=== PATIENT | female | born 1990 | race Caucasian/White ===

== ENCOUNTER 2023-02-15 02:15 | Inpatient (IN) ==
[2023-02-15] MEDS ORDERED: SODIUM CHLORIDE 0.9% 1000ML 2,000 ML IV ONE (02:23)
--- NOTE | 2023-02-15 02:47 | Emergency Department Note ---
History of Present Illness General Chief complaint: Fever Stated complaint: FEVER,CHILLS,LOWER BACK PAIN,ABD PAIN Time Seen by Provider: 02/15/23 02:22 History of Present Illness Maximum Pain Intensity: 3 This 32-year-old female presents to the ER complaining of right flank pain and urinary symptoms with fever and chills. She states she had kidney stones before and can urine infections. Patient denies chest pain, dyspnea, cough, congestion. She states she is worried she might have a stone or urine infection. Home Medications Medication Instructions Recorded Confirmed Type clonazepam 1 mg tablet 2.5 mg PO DAILY 02/15/23 02/15/23 History multivitamin 1 tab PO DAILY 02/15/23 02/15/23 History trimethoprim 100 mg tablet 100 mg PO HS 02/15/23 02/15/23 History Allergies Allergy/AdvReac Type Severity Reaction Status Date / Time No Known Allergies Allergy Verified 06/05/22 01:13 Past Med/Surg History Medical History No pertinent family history No pertinent past medical history Surgical History No pertinent past surgical history S/P T&A (status post tonsillectomy and adenoidectomy) Family History Grandfather (Paternal) Prostate cancer Mother Stomach cancer Father FH: throat cancer Uncle Prostate cancer Rectal cancer Social History Smoking Status: Former smoker Tobacco Type: Cigarettes Second Hand Exposure: No; Do You Dip or Chew Tobacco: No; Tobacco Cessation Education Requested by Patient: No Hx Alcohol Use: No Hx Substance Use: No Preferred Language: Guinean Communication Ability: Effective Repairer [employer] Equipment Required: No Beliefs That Will Affect Care: None Current Living Situation: Parent current occupational status: employed 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 Other Information That Helps Us Care for You: No Feels Safe at Home: Yes Safety Concerns: Feels Safe At This Time Assistive Devices: Glasses Review of Systems A total of 10 systems reviewed and were otherwise negative Physical Exam Vital Signs Vital Signs - 24 hr 02/15/23 02:17 02/15/23 02:44 02/15/23 04:16 Temperature 36.6 C Temperature Source Temporal Artery Scan Pulse Rate 125 H 98 H Pulse Rate [Finger] 76 Pulse Rhythm Regular Pulse Rhythm [Finger] Regular Pulse Strength [Finger] Normal Respiratory Rate 20 17 17 Respiratory Effort / Characteristics Non-Labored Non-Labored Respiratory Depth Normal Normal Respiratory Pattern Regular Blood Pressure 109/78 Blood Pressure [Right Arm] 122/85 Blood Pressure Mean 88 Blood Pressure Mean [Right Arm] 97 Blood Pressure Position [Right Arm] Lying Pulse Oximetry 100 98 97 Oxygen Delivery Method Room Air Room Air Room Air Sepsis Recent Fever Within 48 Hours No Sepsis New/Unexplained Change in Mental Status N/A Sepsis Action Taken by Nursing No Action Required 02/15/23 06:15 Temperature Temperature Source Pulse Rate Pulse Rate [Finger] 78 Pulse Rhythm Pulse Rhythm [Finger] Regular Pulse Strength [Finger] Normal Respiratory Rate 16 Respiratory Effort / Characteristics Non-Labored Respiratory Depth Normal Respiratory Pattern Regular Blood Pressure Blood Pressure [Right Arm] 122/67 Blood Pressure Mean Blood Pressure Mean [Right Arm] 85 Blood Pressure Position [Right Arm] Lying Pulse Oximetry 97 Oxygen Delivery Method Room Air Sepsis Recent Fever Within 48 Hours Sepsis New/Unexplained Change in Mental Status Sepsis Action Taken by Nursing VITALS: Vitals are noted on the nurse's note and reviewed by myself. Vital signs mildly tachycardic. GENERAL: White female, in no acute distress, nondiaphoretic, well-developed well-nourished. SKIN: The skin was without rashes, erythema, edema, or bruising. There is no tenting of the skin. Capillary reflex less than 2 seconds. HEAD: Normocephalic atraumatic. EARS: External auditory canals clear, EYES: Pupils equal round and reactive to light and accommodation. Conjunctivae without injection, sclerae without icterus. Extraocular movements intact. NOSE: Patent, turbinates without inflammation or discharge. MOUTH: Mucous membranes moist. Pharynx without erythema or exudate. Uvula midline. Airway patent. Tongue does not deviate. NECK: Supple without nuchal rigidity. No lymphadenopathy. No thyromegaly. Cervical spine is nontender. No JVD. HEART: Mildly tachycardic rate and rhythm LUNGS: Clear to auscultation bilaterally without wheezes, rales or rhonchi. No retractions or accessory muscle use. ABDOMEN: Positive bowel sounds x 4. Normal tympanic percussion. Soft, tender right lower quadrant, right CVA tenderness, without masses or organomegaly. Wilhelm sign negative. No guarding or rebound tenderness. MUSCULOSKELETAL: No muscle atrophy, erythema, or edema noted. NEURO: Patient was alert and oriented to person place and time. Normal sensation to light and sharp touch. No focal neurological deficits. Course Administered Medications Clonazepam (Clonazepam 1 Mg Tab) 1 mg PO BID@09,17 SELIN Stop: 03/17/23 12:29 Last Admin: 02/15/23 13:22 Dose: 1 mg Documented By: HALEY Doxycycline Hyclate (Doxycycline Hyclate 100 Mg Cap) 100 mg PO BID SELIN Stop: 02/25/23 14:59 Last Admin: 02/15/23 15:31 Dose: 100 mg Documented By: HALEY Ketorolac Tromethamine (Ketorolac Tromethamine 15 Mg/Ml Vial) 15 mg IV Q6H PRN PRN Reason: severe pain (7-10) Stop: 02/20/23 12:29 Last Admin: 02/15/23 13:44 Dose: 15 mg Documented By: HALEY Lactobacillus Acidophilus (Advanced Probiotic 1250 Mg Capsule) 2 cap PO DAILY SELIN Stop: 03/17/23 12:29 Last Admin: 02/15/23 13:20 Dose: 2 cap Documented By: HALEY Metronidazole (Metronidazole 500 Mg Tab) 500 mg PO BID SELIN Stop: 02/25/23 14:49 Last Admin: 02/15/23 15:31 Dose: 500 mg Documented By: HALEY Multivitamins (Multivitamin Tab) 1 tab PO DAILY SELIN Stop: 03/17/23 12:59 Last Admin: 02/15/23 13:20 Dose: 1 tab Documented By: HALEY Discontinued Medications Sodium Chloride (Nss 1000ml) 2,000 mls @ 999 mls/hr IV .Q2H1M ONE Stop: 02/15/23 04:23 Last Infusion: 02/15/23 05:04 Dose: 0 mls/hr Documented By: Admin: 02/15/23 03:24 Dose: 999 mls/hr Documented By: NIMA Ceftriaxone Sodium 1,000 mg/ (Dextrose) 50 mls @ 100 mls/hr IV NOW STA Stop: 02/15/23 03:51 Last Infusion: 02/15/23 04:24 Dose: 0 mls/hr Documented By: Admin: 02/15/23 03:53 Dose: 100 mls/hr Documented By: NIMA Acetaminophen (Ofirmev) 1,000 mg in 100 mls @ 400 mls/hr IV NOW STA Stop: 02/15/23 04:59 Last Infusion: 02/15/23 05:20 Dose: 0 mls/hr Documented By: Admin: 02/15/23 05:05 Dose: 400 mls/hr Documented By: NIMA Ioversol (Optiray 350 100ml) 88 ml IV ONCE ONE Stop: 02/15/23 03:16 Last Admin: 02/15/23 03:12 Dose: 88 ml Documented By: FRANCISCO Ketorolac Tromethamine (Ketorolac Tromethamine 15 Mg/Ml Vial) 10 mg IV NOW STA Stop: 02/15/23 06:47 Last Admin: 02/15/23 06:58 Dose: 10 mg Documented By: GRIFFIN Morphine Sulfate (Morphine Sulfate 2 Mg/Ml Carp) 2 mg IV NOW STA Stop: 02/15/23 07:26 Last Admin: 02/15/23 07:39 Dose: 2 mg Documented By: GRIFFIN Ondansetron HCl (Ondansetron Home Pack 4mg Od Tab) 1 each PO NOW ONE Stop: 02/15/23 06:12 Last Admin: 02/15/23 06:58 Dose: 1 each Documented By: GRIFFIN Medical Decision Making Medical Records Attestation: I reviewed the patient's medical records. Home Medications Current Medication List: was personally reviewed by me Laboratory Data Attestation: I reviewed the patient's lab results. 02/15/23 02:28 02/15/23 02:28 Lab Results 02/15/23 02/15/23 02/15/23 Range/Units 02:28 02:28 02:28 WBC 14.30 H (4.8-10.8) K/ul RBC 4.80 (4.20-5.40) M/uL Hgb 15.1 (12.0-16.0) g/dl POC Hgb (12.0-16.0) g/dl Hct 43.4 (37.0-47.0) % POC Hct (37-47) % MCV 90.4 (80.0-100.0) fL MCH 31.5 (25.0-34.0) pg MCHC 34.8 (32.0-36.0) g/dL RDW Std Deviation 45.2 (36.4-46.3) fL RDW Coeff of Dotty 13.6 (11.5-14.5) % Plt Count 198 (130-400) K/uL MPV 10.9 (9.4-12.4) fL Immature Gran % (Auto) 0.3 % Neut % (Auto) 85.1 % Lymph % (Auto) 4.8 % [place] % (Auto) 9.6 % Eos % (Auto) 0.1 % Baso % (Auto) 0.1 % Neut # (Auto) 12.17 H (1.40-6.50) K/uL Lymph # (Auto) 0.68 L (1.2-3.4) K/uL [place] # (Auto) 1.37 H (0.11-0.59) K/uL Eos # (Auto) 0.02 (0-0.50) K/uL Baso # (Auto) 0.02 (0-0.2) K/uL Immature Gran # (Auto) 0.04 (0.01-0.20) K/uL POC Sodium (135-144) mmol/L Sodium 136 (136-145) mmol/L POC Potassium (3.3-5.0) mmol/L Potassium 4.0 (3.5-5.1) mmol/L POC Chloride (101-112) mmol/L Chloride 101 (98-107) mmol/L Carbon Dioxide 28 (21-32) mmol/L POC Total CO2 (24-31) mmol/L Anion Gap 7 (3-11) POC Anion Gap (16-25) mmol/L POC BUN (7-18) mg/dl BUN 13 (6-23) mg/dl Creatinine 0.88 (0.6-1.2) mg/dl POC Creatinine (0.6-1.3) mg/dl Est Cr Clr Drug Dosing 79.7 ml/min Est GFR ( Amer) 100.1 ml/min Est GFR (Non-Af Amer) 86.3 ml/min BUN/Creatinine Ratio 14.8 (10-20) Glucose 109 H (70-99(Fasting)) mg/dl POC Glucose (other) (70-99) mg/dl Lactate 1.2 (0.4-2.0) mmol/L Calcium 9.3 (8.6-10.3) mg/dl POC Ioniz Calcium Sandee (1.12-1.32) mmol/l Magnesium 2.0 (1.7-2.4) mg/dl Total Bilirubin 1.7 H (0.2-1.0) mg/dl Direct Bilirubin 0.3 H (0-0.2) mg/dl AST 17 (13-39) U/L ALT 11 (7-52) U/L Alkaline Phosphatase 41 (34-104) U/L Troponin I High Sens 4.3 (0-14) pg/ml Total Protein 7.4 (6.0-8.3) gm/dl Albumin 4.6 (3.4-5.0) gm/dl Procalcitonin (0-0.5) ng/ml Urine Color Urine Appearance (Clear) Urine pH (4.5-7.5) Ur Specific [place] (1.000-1.030) Urine Protein (Negative) Urine Glucose (UA) (Negative) Urine Ketones (Negative) Urine Blood (Negative) Urine Nitrite (Negative) Urine Bilirubin (Negative) Urine Urobilinogen (Negative) Ur Leukocyte Esterase (Negative) Urine WBC (Auto) (0-5) /hpf Urine RBC (Auto) (0-4) /hpf U Hyaline Cast (Auto) (0-5) /lpf U Epithel Cells (Auto) (0-5) /lpf Urine Bacteria (Auto) (Negative) Urine Test (Negative) SARS-CoV-2 (PCR) (Negative) 02/15/23 02/15/23 02/15/23 Range/Units 02:28 02:28 02:28 WBC (4.8-10.8) K/ul RBC (4.20-5.40) M/uL Hgb (12.0-16.0) g/dl POC Hgb (12.0-16.0) g/dl Hct (37.0-47.0) % POC Hct (37-47) % MCV (80.0-100.0) fL MCH (25.0-34.0) pg MCHC (32.0-36.0) g/dL RDW Std Deviation (36.4-46.3) fL RDW Coeff of Dotty (11.5-14.5) % Plt Count (130-400) K/uL MPV (9.4-12.4) fL Immature Gran % (Auto) % Neut % (Auto) % Lymph % (Auto) % [place] % (Auto) % Eos % (Auto) % Baso % (Auto) % Neut # (Auto) (1.40-6.50) K/uL Lymph # (Auto) (1.2-3.4) K/uL [place] # (Auto) (0.11-0.59) K/uL Eos # (Auto) (0-0.50) K/uL Baso # (Auto) (0-0.2) K/uL Immature Gran # (Auto) (0.01-0.20) K/uL POC Sodium (135-144) mmol/L Sodium (136-145) mmol/L POC Potassium (3.3-5.0) mmol/L Potassium (3.5-5.1) mmol/L POC Chloride (101-112) mmol/L Chloride (98-107) mmol/L Carbon Dioxide (21-32) mmol/L POC Total CO2 (24-31) mmol/L Anion Gap (3-11) POC Anion Gap (16-25) mmol/L POC BUN (7-18) mg/dl BUN (6-23) mg/dl Creatinine (0.6-1.2) mg/dl POC Creatinine (0.6-1.3) mg/dl Est Cr Clr Drug Dosing ml/min Est GFR ( Amer) ml/min Est GFR (Non-Af Amer) ml/min BUN/Creatinine Ratio (10-20) Glucose (70-99(Fasting)) mg/dl POC Glucose (other) (70-99) mg/dl Lactate (0.4-2.0) mmol/L Calcium (8.6-10.3) mg/dl POC Ioniz Calcium Sandee (1.12-1.32) mmol/l Magnesium (1.7-2.4) mg/dl Total Bilirubin (0.2-1.0) mg/dl Direct Bilirubin (0-0.2) mg/dl AST (13-39) U/L ALT (7-52) U/L Alkaline Phosphatase (34-104) U/L Troponin I High Sens (0-14) pg/ml Total Protein (6.0-8.3) gm/dl Albumin (3.4-5.0) gm/dl Procalcitonin 1.47 H (0-0.5) ng/ml Urine Color Yellow Urine Appearance Clear (Clear) Urine pH 6.5 (4.5-7.5) Ur Specific [place] 1.006 (1.000-1.030) Urine Protein Negative (Negative) Urine Glucose (UA) Negative (Negative) Urine Ketones Negative (Negative) Urine Blood Negative (Negative) Urine Nitrite Negative (Negative) Urine Bilirubin Negative (Negative) Urine Urobilinogen Negative (Negative) Ur Leukocyte Esterase 1+ H (Negative) Urine WBC (Auto) 10-30 H (0-5) /hpf Urine RBC (Auto) 0-4 (0-4) /hpf U Hyaline Cast (Auto) 1-5 (0-5) /lpf U Epithel Cells (Auto) >30 H (0-5) /lpf Urine Bacteria (Auto) 2+ H (Negative) Urine Test Negative (Negative) SARS-CoV-2 (PCR) (Negative) 02/15/23 02/15/23 Range/Units 02:56 02:57 WBC (4.8-10.8) K/ul RBC (4.20-5.40) M/uL Hgb (12.0-16.0) g/dl POC Hgb 13.9 (12.0-16.0) g/dl Hct (37.0-47.0) % POC Hct 41 (37-47) % MCV (80.0-100.0) fL MCH (25.0-34.0) pg MCHC (32.0-36.0) g/dL RDW Std Deviation (36.4-46.3) fL RDW Coeff of Dotty (11.5-14.5) % Plt Count (130-400) K/uL MPV (9.4-12.4) fL Immature Gran % (Auto) % Neut % (Auto) % Lymph % (Auto) % [place] % (Auto) % Eos % (Auto) % Baso % (Auto) % Neut # (Auto) (1.40-6.50) K/uL Lymph # (Auto) (1.2-3.4) K/uL [place] # (Auto) (0.11-0.59) K/uL Eos # (Auto) (0-0.50) K/uL Baso # (Auto) (0-0.2) K/uL Immature Gran # (Auto) (0.01-0.20) K/uL POC Sodium 138 (135-144) mmol/L Sodium (136-145) mmol/L POC Potassium 3.7 (3.3-5.0) mmol/L Potassium (3.5-5.1) mmol/L POC Chloride 100 L (101-112) mmol/L Chloride (98-107) mmol/L Carbon Dioxide (21-32) mmol/L POC Total CO2 26 (24-31) mmol/L Anion Gap (3-11) POC Anion Gap 17.0 (16-25) mmol/L POC BUN 13 (7-18) mg/dl BUN (6-23) mg/dl Creatinine (0.6-1.2) mg/dl POC Creatinine 0.8 (0.6-1.3) mg/dl Est Cr Clr Drug Dosing ml/min Est GFR ( Amer) ml/min Est GFR (Non-Af Amer) ml/min BUN/Creatinine Ratio (10-20) Glucose (70-99(Fasting)) mg/dl POC Glucose (other) 109 H (70-99) mg/dl Lactate (0.4-2.0) mmol/L Calcium (8.6-10.3) mg/dl POC Ioniz Calcium [place] 1.20 (1.12-1.32) mmol/l Magnesium (1.7-2.4) mg/dl Total Bilirubin (0.2-1.0) mg/dl Direct Bilirubin (0-0.2) mg/dl AST (13-39) U/L ALT (7-52) U/L Alkaline Phosphatase (34-104) U/L Troponin I High Sens (0-14) pg/ml Total Protein (6.0-8.3) gm/dl Albumin (3.4-5.0) gm/dl Procalcitonin (0-0.5) ng/ml Urine Color Urine Appearance (Clear) Urine pH (4.5-7.5) Ur Specific [place] (1.000-1.030) Urine Protein (Negative) Urine Glucose (UA) (Negative) Urine Ketones (Negative) Urine Blood (Negative) Urine Nitrite (Negative) Urine Bilirubin (Negative) Urine Urobilinogen (Negative) Ur Leukocyte Esterase (Negative) Urine WBC (Auto) (0-5) /hpf Urine RBC (Auto) (0-4) /hpf U Hyaline Cast (Auto) (0-5) /lpf U Epithel Cells (Auto) (0-5) /lpf Urine Bacteria (Auto) (Negative) Urine Test (Negative) SARS-CoV-2 (PCR) NEGATIVE (Negative) Imaging Data Attestation: I personally reviewed and interpreted this imaging study as follows: Radiologist's Impression: Abdomen/Pelvis CT 02/15/23 02:23 Exam(s): CT ABDOMEN + PELVIS With Contrast IV Amt: 88 ML EXAM: CT Abdomen and Pelvis With Intravenous Contrast CLINICAL HISTORY: Reason for exam: flank pain, fever, ua sx. TECHNIQUE: Axial computed tomography images of the abdomen and pelvis with intravenous contrast. CTDI is 5.52 mGy and DLP is 251.95 mGy-cm. Automated exposure control was utilized for the study. A dose lowering technique was utilized adhering to the principles of ALARA. CONTRAST: Patient received 88 ML of IV contrast COMPARISON: No relevant prior studies available. FINDINGS: Limitations: Poorly diagnostic coronal reformatted images. Lung bases: Unremarkable. No mass. No consolidation. ABDOMEN: Liver: Unremarkable. No mass. Gallbladder and bile ducts: Cholelithiasis. No gross findings to suggest cholecystitis. No ductal dilation. Pancreas: Unremarkable. No mass. No ductal dilation. Spleen: Unremarkable. No splenomegaly. Adrenals: Unremarkable. No mass. Kidneys and ureters: Unremarkable. No solid mass. No hydronephrosis. Stomach and bowel: Unremarkable. No mucosal thickening. No evidence of bowel obstruction. PELVIS: Appendix: Normal appendix. Bladder: Unremarkable. No mass. Reproductive: Unremarkable as visualized. ABDOMEN and PELVIS: Intraperitoneal space: Unremarkable. No free air. No significant fluid collection. Bones/joints: No acute fracture. No dislocation. Soft tissues: Umbilical hernia containing fat. Vasculature: Unremarkable. No abdominal aortic aneurysm. Lymph nodes: Unremarkable. No enlarged lymph nodes. IMPRESSION: No acute findings on CT abdomen/pelvis with incidental findings as described. Electronically signed by: Bobby Quiroga MD 02/15/23 07:25 AM Chest X-Ray 02/15/23 02:23 XR chest 1V portable CLINICAL HISTORY: Sepsis TECHNIQUE: Single frontal radiograph of the chest was obtained. Comparison: Comparison is made to chest radiograph 06/05/2022 FINDINGS: No lines and tubes are seen. The cardiomediastinal silhouette is normal. Reticular interstitial opacities are seen. No evidence of pleural effusion or pneumothorax. IMPRESSION: No acute abnormalities and in particular no radiographic evidence of pneumonia. Chronic interstitial changes are seen. ACT 112: Negative or not required by law. Electronically signed by: Pramod Greer M.D. 02/15/2023 8:47 AM [facility] Narrative Prior records/ancillary studies reviewed. Triage Nursing notes reviewed. Additional history obtained from family. The patient's history was concerning for flank pain urinary symptoms and fever. Differential diagnosis: Etiologies such as pyelonephritis, infected stone, viral syndrome, otitis, pharyngitis, pneumonia, influenza, meningitis, urinary tract infection, sepsis, bacteremia, as well as others were entertained. Physical examination: As above ER treatment provided: An order was placed for continuous cardiac monitoring. The monitor shows a rate of 60-1 50 with a sinus rhythm per my interpretation. IV fluids were ordered On reassessment the patient felt better. Diagnostics interpreted by me: ECG: Ordered for tachycardia EKG: Normal sinus, normal intervals, no acute ST-T wave changes. Impression normal sinus rhythm, septal infarct, rate of 90 intermittent interpreted by myself I think arrhythmia is unlikely. EKG shows normal sinus rhythm with no interval abnormalities such as QT prolongation or WPW. There are no findings to suggest Brugada syndrome. Cardiac monitoring in the emergency department reveals no tachycardic or bradycardic dysrhythmia. Hypertrophic cardiomyopathy was considered but there are no clear historical elements pointing toward this. EKG is not suggestive. The QRS voltage is not extremely large The labs Independently Interpreted by myself revealed leukocytosis Urine concerning for infection sent for culture Blood cultures pending [address] [place] [address] / Director: Armand Dey M.D. Clinical Laboratory Report Name: LESLIE GARCIA Acct: [id number] Status: [facility] [place] 1990 [facility] [place]: [place]06[place] Age: 32 Sex: F Dis Date: Loc: Emergency Department Spec: [id number] Collected: 10/06/21 Received: 10/06/[address]: Cynthia Roberts D.O. Source: Urine,Clean Catch OV Order: Ordered: Urine Culture Procedure Result Verified Site Urine Culture Final 10/08/21 Organism 1 Klebsiella pneumoniae [place] Count >100,000 CFU/ml Sens Sensitivities to Follow Kleb pneum RX M.I.C. --- --------- Amox/Clav S <=8/4 Amp/Sul S <=8/4 Cefazolin S <=2 Cefepime S <=2 Ceftriaxone S <=1 Ciprofloxacin S <=0.25 Ertapenem S <=0.5 Gentamicin S <=4 Levofloxacin S <=0.5 Meropenem S <=1 Nitrofurantoin S <=32 Tobramycin S <=4 Trimeth/Sulfa S <=2/38 Pip/Tazo S <=16 S = SENSITIVE I = INTERMEDIATE R = RESISTANT Imaging studies: pending at time of signout CXR with no acute consolidation, free air or pns per my interpretation This appears to be consistent with possibe pyelonephritis. Patient was started on antibiotics. Labs and diagnostics were independent interpreted by myself. Prior urine culture was reviewed. CT pending at time of signout. Pt has hx recurrent UTIs on daily Bactrim for prevention. Pt was medicated as above and is improving. Case signed out to oncoming provider pending CT and re-eval in stable condition. The chart was completed utilizing [employer] voice recognition software. Grammatical errors, random word insertions, pronoun errors, and incomplete sentences are an occassional consequence of this system due to software limitations, ambient noise, and hardware issues. Any formal questions or concerns about the content, text, or information contained within the body of this dictation should be directly addressed to the physician drug safety assistant for clarification. Impression & Plan Pyelonephritis Discharge Plan Visit Data Chief Complaint: Fever Stated Complaint: FEVER,CHILLS,LOWER BACK PAIN,ABD PAIN ED Provider: [facility] ED Midlevel Provider: Lopez Lazaro Discharge Problem: Pyelonephritis Patient Disposition: Admitted As Inpatient Condition: Good Discharge Instructions Interventions: ED Discharge Assessment Last Done: 02/15/23 12:20
[2023-02-15 03:00] LABS: Appearance Urine Clear (Clear); Bacteria Urine Automated 2+ (Negative); Bilirubin Urine Negative (Negative); Blood Urine Negative (Negative); Color Urine Yellow; Epithelial Cell Urine Auto >30 /lpf (0-5); Glucose Urine UA Negative (Negative); Ketones Urine Negative (Negative); Leukocyte Esterase Urine 1+ (Negative); Nitrite Urine Negative (Negative); Protein Urine Negative (Negative); RBC Urine Automated 0-4 /hpf (0-4); Specific Gravity Urine 1.006 (1.000-1.030); Urobilinogen Urine Negative (Negative); pH Urine 6.5 (4.5-7.5)
[2023-02-15 03:02] LABS: Basophils # (auto) 0.02 K/uL (0-0.2); Basophils % (auto) 0.1 %; Eosinophils # (auto) 0.02 K/uL (0-0.50); Eosinophils % (auto) 0.1 %; Hematocrit (blood only) 43.4 % (37.0-47.0); Hemoglobin 15.1 g/dl (12.0-16.0); Immature Granulocytes # (auto) 0.04 K/uL (0.01-0.20); Immature Granulocytes % (auto) 0.3 %; Lymphocytes # (auto) 0.68 K/uL (1.2-3.4); Lymphocytes % (auto) 4.8 %; Mean Corpuscular Hemoglobin 31.5 pg (25.0-34.0); Mean Corpuscular Hgb Conc 34.8 g/dL (32.0-36.0); Mean Corpuscular Volume 90.4 fL (80.0-100.0); Mean Platelet Volume 10.9 fL (9.4-12.4); Monocytes # (auto) 1.37 K/uL (0.11-0.59); Monocytes % (auto) 9.6 %; Neutrophils # (auto) 12.17 K/uL (1.40-6.50); Neutrophils % (auto) 85.1 %; Platelet Count 198 K/uL (130-400); RDW Coefficient of Variation 13.6 % (11.5-14.5); RDW Standard Deviation 45.2 fL (36.4-46.3)
[2023-02-15 03:08] LABS: iSTAT Creatinine 0.8 mg/dl (0.6-1.3); iSTAT Hemoglobin 13.9 g/dl (12.0-16.0); iSTAT Ionized Calcium 1.2 mmol/l (1.12-1.32); iSTAT Potassium 3.7 mmol/L (3.3-5.0)
[2023-02-15] MEDS ORDERED: OPTIRAY 350 100ml IV ONE (03:15)
[2023-02-15 03:18] LABS: Albumin Level 4.6 gm/dl (3.4-5.0); BUN Creatinine Ratio 14.8 (10-20); Bilirubin Direct 0.3 mg/dl (0-0.2); Bilirubin,Total 1.7 mg/dl (0.2-1.0); Calcium 9.3 mg/dl (8.6-10.3); Creatinine Clr Calc Pharmacy 79.7 ml/min; Est GFR (African American) 100.1 ml/min; Est GFR (Non-African American) 86.3 ml/min; Total Protein 7.4 gm/dl (6.0-8.3)
[2023-02-15] MEDS ORDERED: cefTRIAXone SODIUM 1,000 MG in DEXTROSE 5% AD-VAN 50 ML IV STA (03:22)
[2023-02-15 03:25] LABS: Troponin I High Sensitivity 4.3 pg/ml (0-14)
[2023-02-15] MEDS ORDERED: ACETAMINOPHEN 1,000 MG/100 ML VIAL IV STA (04:45)
[2023-02-15] MEDS ORDERED: ONDANSETRON HOME PACK 4MG OD TAB PO ONE (06:11)
[2023-02-15 06:26] LABS: Pregnancy Test, Urine Negative (Negative)
[2023-02-15] MEDS ORDERED: KETOROLAC TROMETHAMINE 15 MG/ML VIAL IV STA (06:46)
[2023-02-15] MEDS ORDERED: MoRPHine SULFATE 2 MG/ML CARP IV STA (07:25)
--- NOTE | 2023-02-15 07:26 | CT Scan Report ---
Exam(s): CT ABDOMEN + PELVIS With Contrast IV Amt: 88 ML EXAM: CT Abdomen and Pelvis With Intravenous Contrast CLINICAL HISTORY: Reason for exam: flank pain, fever, ua sx. TECHNIQUE: Axial computed tomography images of the abdomen and pelvis with intravenous contrast. CTDI is 5.52 mGy and DLP is 251.95 mGy-cm. Automated exposure control was utilized for the study. A dose lowering technique was utilized adhering to the principles of ALARA. CONTRAST: Patient received 88 ML of IV contrast COMPARISON: No relevant prior studies available. FINDINGS: Limitations: Poorly diagnostic coronal reformatted images. Lung bases: Unremarkable. No mass. No consolidation. ABDOMEN: Liver: Unremarkable. No mass. Gallbladder and bile ducts: Cholelithiasis. No gross findings to suggest cholecystitis. No ductal dilation. Pancreas: Unremarkable. No mass. No ductal dilation. Spleen: Unremarkable. No splenomegaly. Adrenals: Unremarkable. No mass. Kidneys and ureters: Unremarkable. No solid mass. No hydronephrosis. Stomach and bowel: Unremarkable. No mucosal thickening. No evidence of bowel obstruction. PELVIS: Appendix: Normal appendix. Bladder: Unremarkable. No mass. Reproductive: Unremarkable as visualized. ABDOMEN and PELVIS: Intraperitoneal space: Unremarkable. No free air. No significant fluid collection. Bones/joints: No acute fracture. No dislocation. Soft tissues: Umbilical hernia containing fat. Vasculature: Unremarkable. No abdominal aortic aneurysm. Lymph nodes: Unremarkable. No enlarged lymph nodes. IMPRESSION: No acute findings on CT abdomen/pelvis with incidental findings as described. Electronically signed by: Bobby Quiroga MD 02/15/23 07:25 AM
--- NOTE | 2023-02-15 08:03 | History & Physical Report ---
Date of Service February 15, 2023 Assessment & Plan (1) Sepsis: Plan: 2/2 acute pyelonephritis. Resuscitated in the ER, normal lactate. Elevated procalcitonin. She reports frequent UTIs on the order of once monthly and was recently placed on trimethoprim 100mg daily for chronic prevention UTIs. She reports prior to this taking "leftover" abx which would not be complete courses to treat recurrent symptoms. This all may be contributing. Cont ceftriaxone pending urine culture results and clinical improvement. CT shows no evidence of obstructing stone. She has a history of yeast infections with abx use so will give her diflucan at the first sign of vaginal yeast infection. Will also add probiotics. (2) Pyelonephritis: Plan: acute, plan as above. (3) Vaginal bleeding: Plan: Intermittent vaginal bleeding in the last two weeks, alternating menorrhagia and trace bleeding, reported to be associated with pelvic discomfort that is sometimes severe enough to keep her in bed for several hours. Negative urine preg test. h/o taking OCPs, stopped one year ago, not currently on contraception. Appreciate PHOTOGRAMMETRIC COMPILATION SPECIALIST recommendations. (4) Anxiety: Plan: chronic, controlled with clonazepam per home. (5) Recurrent UTI: Plan: As above started trimethoprim low dose daily for chronic suppression UTIs. Lovenox Full Code Dispo- to home in next 1-2 days. Chasity Morillo DO [facility] Hospitalist History of Present Illness Chief Complaint: fever Primary Care Provider: Ryder Garcia 32 yo F presents with vomiting and fever overnight along with right flank pain. She ate dinner around 5pm but nothing since. No active nausea and pain has been controlled with pain meds given in the ER today. For the last couple of weeks, she reports intermittent vaginal bleeding intermittently x 2-3 weeks ago. She has pelvic pain, dull to severe-some days cant get out of bed. Pelvic pain typically resolves spontaneously, but can last for a couple of hours before it resolves. Denies diarrhea or constipation. Normal eating/drinking well up un til last night. Urine has a strong smell which is new. Reports +fever/chills last night (99.4). Reports slight dysuria, no other UTI symptoms of urinary urgency or increased frequency. Has a h/o recurrent UTIs, reporting one per month. States she will take frequent antibiotics but sometimes will just take leftover antibiotic pills that she has on hand. She recently started trimethoprim 100mg qHS approximately 1-2 months ago for chronic prevention of recurrent UTIs. [id number] is 4 yo. H/o elective with initial D&C complicated by post operative infection requiring a repeat D&C and additional infection after that. Not currently on OCPs, used to use the pill. Stopped over 1 yr. Currently reports she is not trying to conceive. Used to have abnormal periods prior to starting on OCPs in her teens. Menses typically lasts 7 days, heavy first 2-3 days, and comes every 4 weeks up until the last 2 weeks when she noted the intermittent spotting. Allergies Allergy/AdvReac Type Severity Reaction Status Date / Time No Known Allergies Allergy Verified 06/05/22 01:13 Home Medications Medication Instructions Recorded Confirmed Type cefdinir 300 mg capsule 300 mg PO BID 10 days #20 caps 02/15/23 02/15/23 Rx clonazepam 1 mg tablet 2.5 mg PO DAILY 02/15/23 02/15/23 History multivitamin 1 tab PO DAILY 02/15/23 02/15/23 History trimethoprim 100 mg tablet 100 mg PO HS 02/15/23 02/15/23 History Past Med/Surg History Medical History (Updated 02/15/23 @ 09:26 by Chasity Morillo DO) No pertinent family history No pertinent past medical history Surgical History (Updated 02/15/23 @ 08:45 by Chasity Morillo DO) No pertinent past surgical history S/P T&A (status post tonsillectomy and adenoidectomy) Family History (Updated 02/15/23 @ 08:47 by Chasity Morillo DO) Grandfather (Paternal) Prostate cancer Mother Stomach cancer Father FH: throat cancer Uncle Prostate cancer Rectal cancer Social History (Updated 02/15/23 @ 08:48 by Chasity Morillo DO) Smoking Status: Light tobacco smoker Tobacco Type: Cigarettes Hx Alcohol Use: No Hx Substance Use: No Preferred Language: Greenlandic Current Living Situation: Parent current occupational status: employed 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 Physical Exam Physical Exam: CONSTITUTIONAL: WNWD, vitals as above, generally well-appearing, NAD EYES: normal conjunctivae, no scleral icterus ENT: external ear and nose normal, MMM NECK: trachea midline RESPIRATORY: clear to auscultation bilaterally, no crackles, rales or wheezes, normal respiratory effort CARDIOVASCULAR: regular rate and rhythm, S1 and 2 heard without murmurs, gallops or rubs, no JVD, no peripheral edema CHEST: inspection of chest was normal GASTROINTESTINAL: normal bowel sounds, soft, nontender, ND, no guarding, +R CVA tenderness MUSCULOSKELETAL: strength 5/5 throughout, head is normocephalic and atraumatic, SKIN: warm and dry, tattoos on upper back NEUROLOGIC: CN 2-12 grossly intact, no sensory deficit, normal cognition, normal speech, no tremor PSYCHIATRIC: alert cooperative and oriented to person, place and time. Euthymic mood, makes good eye contact, language grossly intact, recent and remote memory grossly intact. Results & Data Results & Data Vital Signs (Past 12 Hours) Vital Signs Temp Pulse Pulse Resp BP BP Pulse Ox 02/15/23 06:15 78 16 122/67 97 02/15/23 04:16 76 17 122/85 97 02/15/23 02:44 98 H 17 98 02/15/23 02:17 36.6 C 125 H 20 109/78 100 O2 Del Method 02/15/23 06:15 Room Air 02/15/23 04:16 Room Air 02/15/23 02:44 Room Air 02/15/23 02:17 Room Air Laboratory Results Short CBC 02/15/23 Range/Units 02:28 WBC 14.30 H (4.8-10.8) K/ul Hgb 15.1 (12.0-16.0) g/dl Hct 43.4 (37.0-47.0) % Plt Count 198 (130-400) K/uL BMP 02/15/23 02:28 Sodium 136 Potassium 4.0 Chloride 101 Carbon Dioxide 28 BUN 13 Creatinine 0.88 Glucose 109 H Calcium 9.3 Liver Function 02/15/23 Range/Units 02:28 Total Bilirubin 1.7 H (0.2-1.0) mg/dl Direct Bilirubin 0.3 H (0-0.2) mg/dl AST 17 (13-39) U/L ALT 11 (7-52) U/L Alkaline Phosphatase 41 (34-104) U/L Albumin 4.6 (3.4-5.0) gm/dl Urine 02/15/23 Range/Units 02:28 Urine Color Yellow Urine Appearance Clear (Clear) Urine pH 6.5 (4.5-7.5) Ur Specific [place] 1.006 (1.000-1.030) Urine Protein Negative (Negative) Urine Glucose (UA) Negative (Negative) Diagnostic Findings Abdomen/Pelvis CT 02/15/23 02:23 Exam(s): CT ABDOMEN + PELVIS With Contrast IV Amt: 88 ML EXAM: CT Abdomen and Pelvis With Intravenous Contrast CLINICAL HISTORY: Reason for exam: flank pain, fever, ua sx. TECHNIQUE: Axial computed tomography images of the abdomen and pelvis with intravenous contrast. CTDI is 5.52 mGy and DLP is 251.95 mGy-cm. Automated exposure control was utilized for the study. A dose lowering technique was utilized adhering to the principles of ALARA. CONTRAST: Patient received 88 ML of IV contrast COMPARISON: No relevant prior studies available. FINDINGS: Limitations: Poorly diagnostic coronal reformatted images. Lung bases: Unremarkable. No mass. No consolidation. ABDOMEN: Liver: Unremarkable. No mass. Gallbladder and bile ducts: Cholelithiasis. No gross findings to suggest cholecystitis. No ductal dilation. Pancreas: Unremarkable. No mass. No ductal dilation. Spleen: Unremarkable. No splenomegaly. Adrenals: Unremarkable. No mass. Kidneys and ureters: Unremarkable. No solid mass. No hydronephrosis. Stomach and bowel: Unremarkable. No mucosal thickening. No evidence of bowel obstruction. PELVIS: Appendix: Normal appendix. Bladder: Unremarkable. No mass. Reproductive: Unremarkable as visualized. ABDOMEN and PELVIS: Intraperitoneal space: Unremarkable. No free air. No significant fluid collection. Bones/joints: No acute fracture. No dislocation. Soft tissues: Umbilical hernia containing fat. Vasculature: Unremarkable. No abdominal aortic aneurysm. Lymph nodes: Unremarkable. No enlarged lymph nodes. IMPRESSION: No acute findings on CT abdomen/pelvis with incidental findings as described. Electronically signed by: Bobby Quiroga MD 02/15/23 07:25 AM Code Status & VTE Plan VTE Prophylaxis Plan VTE Prophylaxis will be ordered: Yes
--- NOTE | 2023-02-15 08:43 | Electrocardiogram Report ---
Test Reason : Blood Pressure : / mmHG Vent. Rate : 090 BPM Atrial Rate : 090 BPM P-R Int : 136 ms QRS Dur : 080 ms QT Int : 356 ms P-R-T Axes : 046 037 049 degrees QTc Int : 435 ms Normal sinus rhythm with sinus arrhythmia Normal ECG No previous ECGs available Confirmed by Tommy Billy ([id number]) on 02/15/2023 8:43:47 AM Referred By: REFERRED SELF Confirmed By:Tommy Billy
--- NOTE | 2023-02-15 08:49 | XRay Report ---
XR chest 1V portable CLINICAL HISTORY: Sepsis TECHNIQUE: Single frontal radiograph of the chest was obtained. Comparison: Comparison is made to chest radiograph 06/05/2022 FINDINGS: No lines and tubes are seen. The cardiomediastinal silhouette is normal. Reticular interstitial opaci ties are seen. No evidence of pleural effusion or pneumothorax. IMPRESSION: No acute abnormalities and in particular no radiographic evidence of pneumonia. Chronic interstitial changes are seen. ACT 112: Negative or not required by law. Electronically signed by: Pramod Greer M.D. 02/15/2023 8:47 AM
--- NOTE | 2023-02-15 08:54 | Emergency Department Note ---
ED Visit Note Patient case was signed out to me pending CT scan of the abdomen/pelvis. Patient case signed out to me at 0700 hrs. on 02/15/2023 from Amie Fong PA-C. Please refer to her note regarding chief complaint, HPI, ROS, PE, MDM/decision making/plan until point of signout. I did assess the patient at time of signout. She was resting comfortably. I will note that on arrival she did appear to be tachycardic. Her symptoms are some left-sided flank/low back pain in the setting of urinary symptoms. Preceding that she did have some vaginal bleeding which has resolved and is no longer present. She denies any vaginal discharge. Her labs reveal leukocytosis 14.30. No anemia. No emergent metabolic disturbance. Mild T. bili elevation at 1.7. Procalcitonin 1.47. Urinalysis reveals concern for infection. CT scan as below. COVID testing negative. Urine test negative. At this time in the setting of urinary symptoms with associated tachycardia, leukocytosis, elevated procalcitonin with nausea/vomiting it is felt that further evaluation and management in the inpatient setting is warranted for continued IV antibiotics. Blood cultures and urine cultures are ordered and pending at this time. Case discussed with the hospitalist service. Please refer to further documentation regarding her stay. Patient amenable to plan of care. Exam(s): CT ABDOMEN + PELVIS With Contrast IV Amt: 88 ML EXAM: CT Abdomen and Pelvis With Intravenous Contrast CLINICAL HISTORY: Reason for exam: flank pain, fever, ua sx. TECHNIQUE: Axial computed tomography images of the abdomen and pelvis with intravenous contrast. CTDI is 5.52 mGy and DLP is 251.95 mGy-cm. Automated exposure control was utilized for the study. A dose lowering technique was utilized adhering to the principles of ALARA. CONTRAST: Patient received 88 ML of IV contrast COMPARISON: No relevant prior studies available. FINDINGS: Limitations: Poorly diagnostic coronal reformatted images. Lung bases: Unremarkable. No mass. No consolidation. ABDOMEN: Liver: Unremarkable. No mass. Gallbladder and bile ducts: Cholelithiasis. No gross findings to suggest cholecystitis. No ductal dilation. Pancreas: Unremarkable. No mass. No ductal dilation. Spleen: Unremarkable. No splenomegaly. Adrenals: Unremarkable. No mass. Kidneys and ureters: Unremarkable. No solid mass. No hydronephrosis. Stomach and bowel: Unremarkable. No mucosal thickening. No evidence of bowel obstruction. PELVIS: Appendix: Normal appendix. Bladder: Unremarkable. No mass. Reproductive: Unremarkable as visualized. ABDOMEN and PELVIS: Intraperitoneal space: Unremarkable. No free air. No significant fluid collection. Bones/joints: No acute fracture. No dislocation. Soft tissues: Umbilical hernia containing fat. Vasculature: Unremarkable. No abdominal aortic aneurysm. Lymph nodes: Unremarkable. No enlarged lymph nodes. IMPRESSION: No acute findings on CT abdomen/pelvis with incidental findings as described. Electronically signed by: Bobby Quiroga MD 02/15/23 07:25 AM .
[2023-02-15] MEDS ORDERED: ONDANSETRON INJ 2 MG/ML 2 ML VIAL IV PRN (12:30)
[2023-02-15] MEDS ORDERED: ACETAMINOPHEN 325 MG TAB PO PRN (12:30)
[2023-02-15] MEDS ORDERED: POLYETHYLENE (MIRALAX) 17 GM PACK PO PRN (12:30)
[2023-02-15] MEDS: ADVANCED PROBIOTIC 1250 MG CAPSULE PO SCH (13:20)
[2023-02-15] MEDS: MULTIVITAMIN TAB PO SCH (13:20)
[2023-02-15] MEDS: clonazePAM 1 MG TAB PO SCH ×2 (13:22→17:03)
[2023-02-15] MEDS: KETOROLAC TROMETHAMINE 15 MG/ML VIAL IV PRN ×2 (13:44→22:20)
--- NOTE | 2023-02-15 14:29 | OB/GYN Consultation ---
Date of Consultation February 15, 2023 Assessment & Plan (1) Pelvic pain: 32-year-old female admitted for flank pain, UTI/pyelonephritis and history of chronic UTIs, on IV ceftriaxone, reporting pelvic pain/abnormal vaginal bleeding for the last 3 weeks, Vital signs stable afebrile, Pelvic exam normal, pap smear and cultures collected Recommend pelvic US ( ordered) Given pelvic pain, AUB, elevated WBCC, recommend empiric therapy for PID Recommend to add Doxycycline and Metronidazole for total of 2 weeks ( I added them to her orders) F/u in recruitment and outreach assistant clinic in 3 weeks All questions were answered. (2) Abnormal uterine bleeding: History of Present Illness Reason for Consultation: Pelvic pain, abnormal uterine bleeding Attending Physician: Chasity Morillo, History of Present Illness Patient is a 32-year-old female who was admitted this morning for flank pain, UTI/pyelonephritis and history of recurrent UTI and was started on IV Rocephin pending urine and blood cultures. She reported its pelvic pain and abnormal uterine bleeding and I was called for consultation. Patient reports regular periods every 4 weeks lasting for 7 days with moderate flow. Patient denies pain or cramping with them. Her last period was about a month ago, not sure exactly and it was normal. But she has been having abnormal intermittent vaginal bleeding episodes since then, some episodes are very light spotting and some are with a gush of blood for 1 time and will stop after. She also reports pelvic pain for about 3 weeks. She has been sexually active with her partner for 2 years and denies pain with sexual intercourse. She has not had SI for the last month. They do not use condoms. She denies history of STDs including chlamydia, gonorrhea, herpes. She does not use any contraception methods. She had a termination of in 2020, had to have D&C x2 due to retained products and infections. She recovered well and was on control pill for a year and stop about a year ago. She is not trying to get neither preventing. Now she denies vaginal discharge or itching nor bleeding. Allergies Allergy/AdvReac Type Severity Reaction Status Date / Time No Known Allergies Allergy Verified 06/05/22 01:13 Home Medications Medication Instructions Recorded Confirmed Type clonazepam 1 mg tablet 2.5 mg PO DAILY 02/15/23 02/15/23 History multivitamin 1 tab PO DAILY 02/15/23 02/15/23 History trimethoprim 100 mg tablet 100 mg PO HS 02/15/23 02/15/23 History Patient History Medical History No pertinent family history No pertinent past medical history Surgical History No pertinent past surgical history S/P T&A (status post tonsillectomy and adenoidectomy) Family History Grandfather (Paternal) Prostate cancer Mother Stomach cancer Father FH: throat cancer Uncle Prostate cancer Rectal cancer Social History Smoking Status: Former smoker Tobacco Type: Cigarettes Second Hand Exposure: No; Do You Dip or Chew Tobacco: No; Tobacco Cessation Education Requested by Patient: No Hx Alcohol Use: No Hx Substance Use: No Preferred Language: [place] Communication Ability: Effective General Inspector Required: No Beliefs That Will Affect Care: None Current Living Situation: Parent current occupational status: employed 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 Other Information That Helps Us Care for You: No Feels Safe at Home: Yes Safety Concerns: Feels Safe At This Time Assistive Devices: Glasses Review of Systems Constitutional: as per Subjective / HPI Physical Exam Constitutional: WD/WN, vitals as above well developed, + thin and comfortable (She is comfortably eating her lunch with her male partner in the room) Genitourinary: normal external appearance Speculum/Bimanual Exam: normal appearance of the vagina, normal appearance of the cervix (no bleeding), bladder normal to palpation, + uterus boggy and + uterus enlarged No CMT, no adnexal nor uterine tenderness 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 Results & Data Vital Signs (Past 12 Hours) Vital Signs Temp Pulse Pulse Resp BP BP Pulse Ox 02/15/23 12:32 36.7 C 73 16 121/68 99 02/15/23 12:20 37.1 C 77 18 105/56 L 96 02/15/23 06:15 78 16 122/67 97 02/15/23 04:16 76 17 122/85 97 02/15/23 02:44 98 H 17 98 O2 Del Method 02/15/23 12:32 Room Air 02/15/23 12:20 Room Air 02/15/23 06:15 Room Air 02/15/23 04:16 Room Air 02/15/23 02:44 Room Air Laboratory Results Lab Results 02/15/23 02/15/23 02/15/23 Range/Units 02:28 02:28 02:28 WBC 14.30 H (4.8-10.8) K/ul RBC 4.80 (4.20-5.40) M/uL Hgb 15.1 (12.0-16.0) g/dl POC Hgb (12.0-16.0) g/dl Hct 43.4 (37.0-47.0) % POC Hct (37-47) % MCV 90.4 (80.0-100.0) fL MCH 31.5 (25.0-34.0) pg MCHC 34.8 (32.0-36.0) g/dL RDW Std Deviation 45.2 (36.4-46.3) fL RDW Coeff of Dotty 13.6 (11.5-14.5) % Plt Count 198 (130-400) K/uL MPV 10.9 (9.4-12.4) fL Immature Gran % (Auto) 0.3 % Neut % (Auto) 85.1 % Lymph % (Auto) 4.8 % [place] % (Auto) 9.6 % Eos % (Auto) 0.1 % Baso % (Auto) 0.1 % Neut # (Auto) 12.17 H (1.40-6.50) K/uL Lymph # (Auto) 0.68 L (1.2-3.4) K/uL [place] # (Auto) 1.37 H (0.11-0.59) K/uL Eos # (Auto) 0.02 (0-0.50) K/uL Baso # (Auto) 0.02 (0-0.2) K/uL Immature Gran # (Auto) 0.04 (0.01-0.20) K/uL POC Sodium (135-144) mmol/L Sodium 136 (136-145) mmol/L POC Potassium (3.3-5.0) mmol/L Potassium 4.0 (3.5-5.1) mmol/L POC Chloride (101-112) mmol/L Chloride 101 (98-107) mmol/L Carbon Dioxide 28 (21-32) mmol/L POC Total CO2 (24-31) mmol/L Anion Gap 7 (3-11) POC Anion Gap (16-25) mmol/L POC BUN (7-18) mg/dl BUN 13 (6-23) mg/dl Creatinine 0.88 (0.6-1.2) mg/dl POC Creatinine (0.6-1.3) mg/dl Est Cr Clr Drug Dosing 79.7 ml/min Est GFR ( Amer) 100.1 ml/min Est GFR (Non-Af Amer) 86.3 ml/min BUN/Creatinine Ratio 14.8 (10-20) Glucose 109 H (70-99(Fasting)) mg/dl POC Glucose (other) (70-99) mg/dl Lactate 1.2 (0.4-2.0) mmol/L Calcium 9.3 (8.6-10.3) mg/dl POC Ioniz Calcium Sandee (1.12-1.32) mmol/l Magnesium 2.0 (1.7-2.4) mg/dl Total Bilirubin 1.7 H (0.2-1.0) mg/dl Direct Bilirubin 0.3 H (0-0.2) mg/dl AST 17 (13-39) U/L ALT 11 (7-52) U/L Alkaline Phosphatase 41 (34-104) U/L Troponin I High Sens 4.3 (0-14) pg/ml Total Protein 7.4 (6.0-8.3) gm/dl Albumin 4.6 (3.4-5.0) gm/dl Procalcitonin (0-0.5) ng/ml Urine Color Urine Appearance (Clear) Urine pH (4.5-7.5) Ur Specific [place] (1.000-1.030) Urine Protein (Negative) Urine Glucose (UA) (Negative) Urine Ketones (Negative) Urine Blood (Negative) Urine Nitrite (Negative) Urine Bilirubin (Negative) Urine Urobilinogen (Negative) Ur Leukocyte Esterase (Negative) Urine WBC (Auto) (0-5) /hpf Urine RBC (Auto) (0-4) /hpf U Hyaline Cast (Auto) (0-5) /lpf U Epithel Cells (Auto) (0-5) /lpf Urine Bacteria (Auto) (Negative) Urine Test (Negative) SARS-CoV-2 (PCR) (Negative) 02/15/23 02/15/23 02/15/23 Range/Units 02:28 02:28 02:28 WBC (4.8-10.8) K/ul RBC (4.20-5.40) M/uL Hgb (12.0-16.0) g/dl POC Hgb (12.0-16.0) g/dl Hct (37.0-47.0) % POC Hct (37-47) % MCV (80.0-100.0) fL MCH (25.0-34.0) pg MCHC (32.0-36.0) g/dL RDW Std Deviation (36.4-46.3) fL RDW Coeff of Dotty (11.5-14.5) % Plt Count (130-400) K/uL MPV (9.4-12.4) fL Immature Gran % (Auto) % Neut % (Auto) % Lymph % (Auto) % [place] % (Auto) % Eos % (Auto) % Baso % (Auto) % Neut # (Auto) (1.40-6.50) K/uL Lymph # (Auto) (1.2-3.4) K/uL [place] # (Auto) (0.11-0.59) K/uL Eos # (Auto) (0-0.50) K/uL Baso # (Auto) (0-0.2) K/uL Immature Gran # (Auto) (0.01-0.20) K/uL POC Sodium (135-144) mmol/L Sodium (136-145) mmol/L POC Potassium (3.3-5.0) mmol/L Potassium (3.5-5.1) mmol/L POC Chloride (101-112) mmol/L Chloride (98-107) mmol/L Carbon Dioxide (21-32) mmol/L POC Total CO2 (24-31) mmol/L Anion Gap (3-11) POC Anion Gap (16-25) mmol/L POC BUN (7-18) mg/dl BUN (6-23) mg/dl Creatinine (0.6-1.2) mg/dl POC Creatinine (0.6-1.3) mg/dl Est Cr Clr Drug Dosing ml/min Est GFR ( Amer) ml/min Est GFR (Non-Af Amer) ml/min BUN/Creatinine Ratio (10-20) Glucose (70-99(Fasting)) mg/dl POC Glucose (other) (70-99) mg/dl Lactate (0.4-2.0) mmol/L Calcium (8.6-10.3) mg/dl POC Ioniz Calcium Sandee (1.12-1.32) mmol/l Magnesium (1.7-2.4) mg/dl Total Bilirubin (0.2-1.0) mg/dl Direct Bilirubin (0-0.2) mg/dl AST (13-39) U/L ALT (7-52) U/L Alkaline Phosphatase (34-104) U/L Troponin I High Sens (0-14) pg/ml Total Protein (6.0-8.3) gm/dl Albumin (3.4-5.0) gm/dl Procalcitonin 1.47 H (0-0.5) ng/ml Urine Color Yellow Urine Appearance Clear (Clear) Urine pH 6.5 (4.5-7.5) Ur Specific [place] 1.006 (1.000-1.030) Urine Protein Negative (Negative) Urine Glucose (UA) Negative (Negative) Urine Ketones Negative (Negative) Urine Blood Negative (Negative) Urine Nitrite Negative (Negative) Urine Bilirubin Negative (Negative) Urine Urobilinogen Negative (Negative) Ur Leukocyte Esterase 1+ H (Negative) Urine WBC (Auto) 10-30 H (0-5) /hpf Urine RBC (Auto) 0-4 (0-4) /hpf U Hyaline Cast (Auto) 1-5 (0-5) /lpf U Epithel Cells (Auto) >30 H (0-5) /lpf Urine Bacteria (Auto) 2+ H (Negative) Urine Test Negative (Negative) SARS-CoV-2 (PCR) (Negative) 02/15/23 02/15/23 Range/Units 02:56 02:57 WBC (4.8-10.8) K/ul RBC (4.20-5.40) M/uL Hgb (12.0-16.0) g/dl POC Hgb 13.9 (12.0-16.0) g/dl Hct (37.0-47.0) % POC Hct 41 (37-47) % MCV (80.0-100.0) fL MCH (25.0-34.0) pg MCHC (32.0-36.0) g/dL RDW Std Deviation (36.4-46.3) fL RDW Coeff of Dotty (11.5-14.5) % Plt Count (130-400) K/uL MPV (9.4-12.4) fL Immature Gran % (Auto) % Neut % (Auto) % Lymph % (Auto) % [place] % (Auto) % Eos % (Auto) % Baso % (Auto) % Neut # (Auto) (1.40-6.50) K/uL Lymph # (Auto) (1.2-3.4) K/uL [place] # (Auto) (0.11-0.59) K/uL Eos # (Auto) (0-0.50) K/uL Baso # (Auto) (0-0.2) K/uL Immature Gran # (Auto) (0.01-0.20) K/uL POC Sodium 138 (135-144) mmol/L Sodium (136-145) mmol/L POC Potassium 3.7 (3.3-5.0) mmol/L Potassium (3.5-5.1) mmol/L POC Chloride 100 L (101-112) mmol/L Chloride (98-107) mmol/L Carbon Dioxide (21-32) mmol/L POC Total CO2 26 (24-31) mmol/L Anion Gap (3-11) POC Anion Gap 17.0 (16-25) mmol/L POC BUN 13 (7-18) mg/dl BUN (6-23) mg/dl Creatinine (0.6-1.2) mg/dl POC Creatinine 0.8 (0.6-1.3) mg/dl Est Cr Clr Drug Dosing ml/min Est GFR ( Amer) ml/min Est GFR (Non-Af Amer) ml/min BUN/Creatinine Ratio (10-20) Glucose (70-99(Fasting)) mg/dl POC Glucose (other) 109 H (70-99) mg/dl Lactate (0.4-2.0) mmol/L Calcium (8.6-10.3) mg/dl POC Ioniz Calcium Sandee 1.20 (1.12-1.32) mmol/l Magnesium (1.7-2.4) mg/dl Total Bilirubin (0.2-1.0) mg/dl Direct Bilirubin (0-0.2) mg/dl AST (13-39) U/L ALT (7-52) U/L Alkaline Phosphatase (34-104) U/L Troponin I High Sens (0-14) pg/ml Total Protein (6.0-8.3) gm/dl Albumin (3.4-5.0) gm/dl Procalcitonin (0-0.5) ng/ml Urine Color Urine Appearance (Clear) Urine pH (4.5-7.5) Ur Specific [place] (1.000-1.030) Urine Protein (Negative) Urine Glucose (UA) (Negative) Urine Ketones (Negative) Urine Blood (Negative) Urine Nitrite (Negative) Urine Bilirubin (Negative) Urine Urobilinogen (Negative) Ur Leukocyte Esterase (Negative) Urine WBC (Auto) (0-5) /hpf Urine RBC (Auto) (0-4) /hpf U Hyaline Cast (Auto) (0-5) /lpf U Epithel Cells (Auto) (0-5) /lpf Urine Bacteria (Auto) (Negative) Urine Test (Negative) SARS-CoV-2 (PCR) NEGATIVE (Negative) Diagnostic Findings [place], [place] [phone] CT Scan Report Patient:LESLIE GARCIA Admit Date:02/15/23 MR#:[id number] Address1:[place] [address] Acct ID:[id number] Address2: Date:1990 [facility] [place] Zip:[place] [address] Age:32 Location:ED Sex:F Room/Bed: Att Phy: Diagnosis:FEVER,CHILLS,LOWER BACK PAIN,ABD PAIN [place] Phy:Ryder Garcia MD Service Date:02/15/23 Fam Phy: Interpreting Phy:Bobby Quiroga MDAdmit Phy: Ordering Phy:Yvonne Fong PA-C cc: ~ Exam(s): CT ABDOMEN + PELVIS With Contrast IV Amt: 88 ML EXAM: CT Abdomen and Pelvis With Intravenous Contrast CLINICAL HISTORY: Reason for exam: flank pain, fever, ua sx. TECHNIQUE: Axial computed tomography images of the abdomen and pelvis with intravenous contrast. CTDI is 5.52 mGy and DLP is 251.95 mGy-cm. Automated exposure control was utilized for the study. A dose lowering technique was utilized adhering to the principles of ALARA. CONTRAST: Patient received 88 ML of IV contrast COMPARISON: No relevant prior studies available. FINDINGS: Limitations: Poorly diagnostic coronal reformatted images. Lung bases: Unremarkable. No mass. No consolidation. ABDOMEN: Liver: Unremarkable. No mass. Gallbladder and bile ducts: Cholelithiasis. No gross findings to suggest cholecystitis. No ductal dilation. Pancreas: Unremarkable. No mass. No ductal dilation. Spleen: Unremarkable. No splenomegaly. Adrenals: Unremarkable. No mass. Kidneys and ureters: Unremarkable. No solid mass. No hydronephrosis. Stomach and bowel: Unremarkable. No mucosal thickening. No evidence of bowel obstruction. PELVIS: Appendix: Normal appendix. Bladder: Unremarkable. No mass. Reproductive: Unremarkable as visualized. ABDOMEN and PELVIS: Intraperitoneal space: Unremarkable. No free air. No significant fluid collection. Bones/joints: No acute fracture. No dislocation. Soft tissues: Umbilical hernia containing fat. Vasculature: Unremarkable. No abdominal aortic aneurysm. Lymph nodes: Unremarkable. No enlarged lymph nodes. IMPRESSION: No acute findings on CT abdomen/pelvis with incidental findings as described.
[2023-02-15] MEDS: metroNIDAZOLE 500 MG TAB PO SCH ×2 (15:31→21:07)
[2023-02-15] MEDS: DOXYCYCLINE HYCLATE 100 MG CAP PO SCH ×2 (15:31→21:07)
[2023-02-15 16:58] LABS: A calco-baum cmplx NotReported Not Detected (NotDetected); Bact fragilis Not Reported Not Detected (NotDetected); C auris Not Reported Not Detected (NotDetected); CTX-M Resistant Gene Not Detected (NotDetected); Calbicans Not Reported Not Detected (NotDetected); Candida glabrata Not Reported Not Detected (NotDetected); Candida krusei Not Reported Not Detected (NotDetected); Cneoformans/gatti Not Reported Not Detected (NotDetected); Cparapsilosis Not Reported Not Detected (NotDetected); Ctropicalis Not Reported Not Detected (NotDetected); E cloacae compx Not Reported Not Detected (NotDetected); Efaecalis Not Reported Not Detected (NotDetected); Efaecium Not Reported Not Detected (NotDetected); Enterobacterales Not Reported DETECTED (NotDetected); Escherichia coli Not Reported DETECTED (NotDetected); H influenzae Not Reported Not Detected (NotDetected); IMP Resistant Gene Not Detected (NotDetected); K aerogenes Not Reported Not Detected (NotDetected); KPC Resistant Gene Not Detected (NotDetected); Koxytoca Not Reported Not Detected (NotDetected); Kpneumoniae grp Not Reported Not Detected (NotDetected); Lmonocyt Not Reported Not Detected (NotDetected); N meningitidis Not Reported Not Detected (NotDetected); NDM Resistant Gene Not Detected (NotDetected); OXA 48 Like Resistant Gene Not Detected (NotDetected); P aeruginosa Not Reported Not Detected (NotDetected); Proteus spp Not Reported Not Detected (NotDetected); Salmonella spp Not Reported Not Detected (NotDetected); Smarcescens Not Reported Not Detected (NotDetected); Staph lugdunensis Not Reported Not Detected (NotDetected); Staph spp. Not Reported Not Detected (NotDetected); Staphaureus Not Reported Not Detected (NotDetected); Staphepi Not Reported Not Detected (NotDetected); Stenmaltophilia Not Reported Not Detected (NotDetected); Strep agal(GrpB) Not Reported Not Detected (NotDetected); Strep pneum Not Reported Not Detected (NotDetected); Strep pyog (GrpA) Not Reported Not Detected (NotDetected); Strep spp Not Reported Not Detected (NotDetected); VIM Resistant Gene Not Detected (NotDetected); mcr-1 Colistin Resistant Gene Not Detected (NotDetected)
[2023-02-15 17:02] LABS: Enterobacterales DETECTED (NotDetected)
--- NOTE | 2023-02-15 17:36 | Ultrasound Report ---
US pelvic complete CLINICAL HISTORY: pelvic pain, abnormal uterine bleeding TECHNIQUE: Real-time sonographic images of the pelvic contents were obtained with transabdominal and transvaginal technique. Comparison: None available at the time of this dictation. FINDINGS: The uterus measures 9.2 x 5.8 x 3.8 cm. The endometrial cavity echo stripe measures 0.9 cm in thickne ss. Nabothian cysts are seen. The right ovary measures 3.9 x 2.2 x 1.8 cm. The left ovary measures 4.0 x 3.0 x 2.5 cm. Normal appea fede of the ovaries bilaterally. Doppler flow is seen bilaterally. There was trace fluid in the cul-de-sac. IMPRESSION: Normal transvaginal pelvic ultrasound. ACT 112: Negative or not required by law. Electronically signed by: Pramod Greer M.D. 02/15/2023 5:35 PM
[2023-02-15] MEDS ORDERED: ENOXAPARIN INJ 40 MG/0.4 ML SYR SQ SCH (21:00)
[2023-02-15] MEDS: clonazePAM 0.5 MG TAB PO SCH (21:09)
[2023-02-16] MEDS ORDERED: cefTRIAXone SODIUM 1,000 MG in DEXTROSE 5% AD-VAN 50 ML IV SCH (04:00)
[2023-02-16 07:55] LABS: Hematocrit (blood only) 35.8 % (37.0-47.0); Hemoglobin 12.4 g/dl (12.0-16.0); Mean Corpuscular Hemoglobin 31.8 pg (25.0-34.0); Mean Corpuscular Hgb Conc 34.6 g/dL (32.0-36.0); Mean Corpuscular Volume 91.8 fL (80.0-100.0); Mean Platelet Volume 11.1 fL (9.4-12.4); Platelet Count 154 K/uL (130-400); RDW Coefficient of Variation 14.1 % (11.5-14.5); RDW Standard Deviation 48.1 fL (36.4-46.3); White Blood Count 5.76 K/ul (4.8-10.8)
[2023-02-16 08:12] LABS: Albumin Globulin Ratio 1.6 (0.9-2); Albumin Level 3.5 gm/dl (3.4-5.0); BUN Creatinine Ratio 18.2 (10-20); Bilirubin,Total 0.7 mg/dl (0.2-1.0); Calcium 8.1 mg/dl (8.6-10.3); Creatinine Clr Calc Pharmacy 106.4 ml/min; Est GFR (African American) 134.5 ml/min; Est GFR (Non-African American) 116.1 ml/min; Globulin 2.2 gm/dl (2.5-4.0); Magnesium 1.8 mg/dl (1.7-2.4); Potassium 3.7 mmol/L (3.5-5.1); Total Protein 5.7 gm/dl (6.0-8.3)
[2023-02-16] MEDS: KETOROLAC TROMETHAMINE 15 MG/ML VIAL IV PRN ×2 (08:38→20:25)
[2023-02-16] MEDS: ADVANCED PROBIOTIC 1250 MG CAPSULE PO SCH (08:39)
[2023-02-16] MEDS: DOXYCYCLINE HYCLATE 100 MG CAP PO SCH ×2 (08:39→20:24)
[2023-02-16] MEDS: clonazePAM 1 MG TAB PO SCH ×2 (08:39→17:22)
[2023-02-16] MEDS: metroNIDAZOLE 500 MG TAB PO SCH ×2 (08:39→20:24)
[2023-02-16] MEDS: MULTIVITAMIN TAB PO SCH (08:40)
[2023-02-16] MEDS ORDERED: cefTRIAXone SODIUM 1,000 MG in DEXTROSE 5% AD-VAN 50 ML IV STA (10:22)
[2023-02-16] MEDS: clonazePAM 0.5 MG TAB PO SCH (20:23)
[2023-02-16 20:57] LABS: Appearance Urine Clear (Clear); Bacteria Urine Automated Negative (Negative); Bilirubin Urine Negative (Negative); Blood Urine Negative (Negative); Color Urine Yellow; Epithelial Cell Urine Auto >30 /lpf (0-5); Glucose Urine UA Negative (Negative); Ketones Urine Trace (Negative); Leukocyte Esterase Urine Trace (Negative); Nitrite Urine Negative (Negative); Protein Urine Negative (Negative); RBC Urine Automated 0-4 /hpf (0-4); Specific Gravity Urine 1.024 (1.000-1.030); Urobilinogen Urine Negative (Negative); pH Urine 6.5 (4.5-7.5)
[2023-02-16] MEDS ORDERED: KETOROLAC TROMETHAMINE 15 MG/ML VIAL IV ONE (21:26)
[2023-02-17] MEDS ORDERED: cefTRIAXone SODIUM 2,000 MG in DEXTROSE 5% 50 ML IV SCH (09:00)
[2023-02-17] MEDS: DOXYCYCLINE HYCLATE 100 MG CAP PO SCH ×2 (09:05→20:43)
[2023-02-17] MEDS: metroNIDAZOLE 500 MG TAB PO SCH ×2 (09:06→20:43)
[2023-02-17] MEDS: MULTIVITAMIN TAB PO SCH (09:06)
[2023-02-17] MEDS: ADVANCED PROBIOTIC 1250 MG CAPSULE PO SCH (09:06)
[2023-02-17] MEDS: clonazePAM 1 MG TAB PO SCH ×2 (09:11→18:06)
[2023-02-17] MEDS ORDERED: cephALEXin 500 MG CAP PO SCH (17:00)
--- NOTE | 2023-02-17 17:25 | Hospitalist Progress Note ---
Date of Service February 17, 2023 Assessment & Plan (1) Sepsis: (2) Pyelonephritis: Plan: E. coli bacteremia Patient presented with fever and right flank pain and evidence of sepsis with leukocytosis and tachycardia. Normal BP and lactate. UA suggestive of UTI. CT ABD/pelvis negative for obstructing stone. History of recurrent UTIs, recently started on trimethoprim for UTI suppression Urine and blood culture results reviewed -positive for E. coli w/ slightly differing sensitivities. Repeat blood cultures from 02/16 no growth to date. Initially placed on IV ceftriaxone -- will transition to p.o. Levaquin today, plan to treat for total of 10 days. Noted intermediate sensitivity to ciprofloxacin however blood culture is resistant to cefazolin, with limited other p.o. options available. On probiotic -- plan for Diflucan at first sign of yeast infection (3) Vaginal bleeding: Plan: Intermittent vaginal bleeding in the last two weeks, alternating menorrhagia and trace bleeding, reported to be associated with pelvic discomfort that is sometimes severe enough to keep her in bed for several hours. Negative urine preg test. h/o taking OCPs, stopped one year ago, not currently on contraception. PUMPER GAGER APPRENTICE consulted and pelvic exam performed and reported normal Pelvic ultrasound unremarkable PUMPER GAGER APPRENTICE recommending empiric therapy for PID with doxycycline and metronidazole for 2 weeks Pap and STD results pending (4) Anxiety: Plan: chronic, controlled with clonazepam per home (5) Recurrent UTI: Plan: As above started trimethoprim low dose daily for chronic suppression UTIs. She reports prior to this taking "leftover" abx which would not be complete courses to treat recurrent symptoms. DVT prophylaxis SCDs Dispo-likely DC tomorrow I spent a total of 40 minutes coordinating, documenting, and providing care for this patient excluding time spent in the performance of separately billed services. This included personally reviewing all current laboratories and imaging studies, medication reconciliation, outpatient chart review, and discussion with specialists. Admission and Anticipated Discharge Date Admission Date: February 15, 2023 Subjective Follow-up for sepsis, pyelonephritis. Patient seen and examined. Reports feeling improved but not back to baseline. Remains afebrile. Reports ongoing dysuria however improved. No hematuria. Denies chest pain or shortness of breath. No abdominal pain or nausea. Physical Exam Constitutional: WD/WN, vitals as above Respiratory: normal respiratory effort, lungs clear to auscultation Cardiovascular: Rate/Rhythm: regular rate and regular rhythm Vessels: normal peripheral pulses Extremities: no edema Gastrointestinal (Abdomen): Percussion/Palpation: abdomen soft; abdomen nontender Skin: no rashes, warm and dry Neurologic: no focal motor deficits Psychiatric: A+Ox3, euthymic affect Results & Data Results & Data Vital Signs (Past 12 Hours) Vital Signs Temp Pulse Resp BP Pulse Ox O2 Del Method 02/17/23 15:26 37.2 C 85 18 101/62 98 Room Air 02/17/23 07:41 36.8 C 82 18 109/68 99 Room Air Laboratory Results Urine 02/16/23 Range/Units Unknown Urine Color Yellow Urine Appearance Clear (Clear) Urine pH 6.5 (4.5-7.5) Ur Specific [place] 1.024 (1.000-1.030) Urine Protein Negative (Negative) Urine Glucose (UA) Negative (Negative)
[2023-02-17] MEDS: levoFLOXacin 750 MG TAB PO SCH (18:05)
[2023-02-17] MEDS: clonazePAM 0.5 MG TAB PO SCH (20:42)
[2023-02-17] MEDS ORDERED: CEFDINIR 300 MG CAP PO SCH (21:00)
[2023-02-18] MEDS: KETOROLAC TROMETHAMINE 15 MG/ML VIAL IV PRN ×2 (01:19→08:38)
[2023-02-18 07:27] LABS: Chlam trach RNA(Genit,Ureth,Ur Not Detected (NotDetected); GC(Neis gon)RNA(Genit,Ureth,Ur Not Detected (NotDetected); Trichomonas vag RNA GenitalFem Not Detected (NotDetected)
[2023-02-18 07:38] LABS: Hematocrit (blood only) 35.1 % (37.0-47.0); Hemoglobin 12.3 g/dl (12.0-16.0); Mean Corpuscular Hemoglobin 31.6 pg (25.0-34.0); Mean Corpuscular Volume 90.2 fL (80.0-100.0); Mean Platelet Volume 11.4 fL (9.4-12.4); Platelet Count 167 K/uL (130-400); RDW Coefficient of Variation 13.8 % (11.5-14.5); RDW Standard Deviation 45.7 fL (36.4-46.3); Red Blood Count 3.89 M/uL (4.20-5.40); White Blood Count 6.71 K/ul (4.8-10.8)
[2023-02-18 08:10] LABS: BUN Creatinine Ratio 21.4 (10-20); Calcium 8.4 mg/dl (8.6-10.3); Creatinine Clr Calc Pharmacy 100.3 ml/min; Est GFR (African American) 131.9 ml/min; Est GFR (Non-African American) 113.8 ml/min; Potassium 3.6 mmol/L (3.5-5.1)
[2023-02-18] MEDS: clonazePAM 1 MG TAB PO SCH (08:35)
[2023-02-18] MEDS: ADVANCED PROBIOTIC 1250 MG CAPSULE PO SCH (08:36)
[2023-02-18] MEDS: DOXYCYCLINE HYCLATE 100 MG CAP PO SCH (08:36)
[2023-02-18] MEDS: metroNIDAZOLE 500 MG TAB PO SCH (08:37)
[2023-02-18] MEDS: MULTIVITAMIN TAB PO SCH (08:37)
--- NOTE | 2023-02-18 11:32 | Discharge Summary ---
Discharge Summary Date of Service February 18, 2023 Admission HPI Per Admitting Provider 32 yo F presents with vomiting and fever overnight along with right flank pain. She ate dinner around 5pm but nothing since. No active nausea and pain has been controlled with pain meds given in the ER today. For the last couple of weeks, she reports intermittent vaginal bleeding intermittently x 2-3 weeks ago. She has pelvic pain, dull to severe-some days cant get out of bed. Pelvic pain typically resolves spontaneously, but can last for a couple of hours before it resolves. Denies diarrhea or constipation. Normal eating/drinking well up until last night. Urine has a strong smell which is new. Reports +fever/chills last night (99.4). Reports slight dysuria, no other UTI symptoms of urinary urgency or increased frequency. Has a h/o recurrent UTIs, reporting one per month. States she will take frequent antibiotics but sometimes will just take leftover antibiotic pills that she has on hand. She recently started trimethoprim 100mg qHS approximately 1-2 months ago for chronic prevention of recurrent UTIs. [id number] is 4 yo. H/o elective with initial D&C complicated by post operative infection requiring a repeat D&C and additional infection after that. Not currently on OCPs, used to use the pill. Stopped over 1 yr. Currently reports she is not trying to conceive. Used to have abnormal periods prior to starting on OCPs in her teens. Menses typically lasts 7 days, heavy first 2-3 days, and comes every 4 weeks up until the last 2 weeks when she noted the intermittent spotting. Principal Dx & Hospital Course #1 = Principal Diagnosis (1) Sepsis: (2) Pyelonephritis: E. coli bacteremia Patient presented with fever and right flank pain and evidence of sepsis with leukocytosis and tachycardia. Normal BP and lactate. UA suggestive of UTI. CT ABD/pelvis negative for obstructing stone. History of recurrent UTIs, recently started on trimethoprim for UTI suppression Urine and blood culture results reviewed -positive for E. coli w/ slightly differing sensitivities. Repeat blood cultures from 02/16 no growth to date. Initially placed on IV ceftriaxone -- will transition to p.o. Levaquin today, plan to treat for total of 10 days. Noted intermediate sensitivity to ciprofloxacin however blood culture is resistant to cefazolin, with limited other p.o. options available. On probiotic -- plan for Diflucan at first sign of yeast infection (3) Vaginal bleeding: Intermittent vaginal bleeding in the last two weeks, alternating menorrhagia and trace bleeding, reported to be associated with pelvic discomfort that is sometimes severe enough to keep her in bed for several hours. Negative urine preg test. h/o taking OCPs, stopped one year ago, not currently on contraception. INSURANCE AGENTS SUPERVISOR consulted and pelvic exam performed and reported normal Pelvic ultrasound unremarkable INSURANCE AGENTS SUPERVISOR recommending empiric therapy for PID with doxycycline and metronidazole for 2 weeks Pap and STD results pending (4) Anxiety: chronic, controlled with clonazepam per home (5) Recurrent UTI: As above started trimethoprim low dose daily for chronic suppression UTIs. She reports prior to this taking "leftover" abx which would not be complete courses to treat recurrent symptoms. DVT prophylaxis SCDs Dispo-likely DC tomorrow I spent a total of 40 minutes coordinating, documenting, and providing care for this patient excluding time spent in the performance of separately billed services. This included personally reviewing all current laboratories and imaging studies, medication reconciliation, outpatient chart review, and discussion with specialists. (6) Acute PID (pelvic inflammatory disease): Discharge Exam CONSTITUTIONAL: WNWD, vitals as above, generally well-appearing, NAD EYES: normal conjunctivae, no scleral icterus ENT: external ear and nose normal, MMM NECK: trachea midline RESPIRATORY: clear to auscultation bilaterally, no crackles, rales or wheezes, normal respiratory effort CARDIOVASCULAR: regular rate and rhythm, S1 and 2 heard without murmurs, gallops or rubs, no JVD, no peripheral edema CHEST: inspection of chest was normal GASTROINTESTINAL: normal bowel sounds, soft, nontender, ND, no guarding, +R CVA tenderness MUSCULOSKELETAL: strength 5/5 throughout, head is normocephalic and atraumatic, SKIN: warm and dry, tattoos on upper back NEUROLOGIC: CN 2-12 grossly intact, no sensory deficit, normal cognition, normal speech, no tremor PSYCHIATRIC: alert cooperative and oriented to person, place and time. Euthymic mood, makes good eye contact, language grossly intact, recent and remote memory grossly intact. Updated Medication List Medication Instructions Recorded Confirmed Type clonazepam 1 mg tablet 2.5 mg PO DAILY 02/15/23 02/15/23 History multivitamin 1 tab PO DAILY 02/15/23 02/15/23 History Saccharomyces boulardii 250 mg 250 mg PO DAILY #14 caps 02/18/23 Rx capsule (Florastor) doxycycline hyclate 100 mg capsule 100 mg PO BID #20 caps 02/18/23 Rx fluconazole 150 mg tablet 150 mg PO Q3D PRN yeast infection 02/18/23 Rx (Diflucan) 2 doses #2 tabs ibuprofen 800 mg tablet 800 mg PO Q8H PRN pain #30 tabs 02/18/23 Rx levofloxacin 750 mg tablet 750 mg PO DAILY@1100 #7 tabs 02/18/23 Rx metronidazole 500 mg tablet 500 mg PO BID #14 tabs 02/18/23 Rx Hospital Stay Data Consultations 02/15/23 07:58 ED Decision to Admit Stat 02/15/23 08:56 Consult Gynecology Routine Diagnostic Imagining Performed 02/15/23 02:23 CT Abd and Pelvis [CT abd pelvis IV con only] Stat 02/15/23 14:20 US pelvic complete Urgent 02/15/23 14:21 US transvaginal Urgent Pending Results Patient Have Any Pending Studies at Discharge: Yes Discharge Instructions Given to Patient (Per Discharging Provider) Please take all medications as instructed on discharge list below. Please complete all antibiotics as instructed. You will need to follow up with both your primary care physician in one week and your golf sales associate in 1-2 weeks to ensure complete resolution from infections and guide treatment moving forward. It was a pleasure taking care of you! Please call if you have any questions or problems. You can reach a [facility] hospitalist on duty at [facility] 24 hours a day by calling [phone]. Take care of yourself. Chasity Morillo, [facility] Campusist
[2023-02-18] MEDS: levoFLOXacin 750 MG TAB PO SCH (11:41)
== END 2023-02-18 15:51 | disposition home or self-care (01) | DRG 872 ==
LOC: ED 02:15 → 3N 07:59